=== PATIENT | female | born 1950 | race African-American/Black ===

== ENCOUNTER 2019-06-09 22:04 | Emergency (ER) | payer SELFPAY ==
[2019-06-09] MEDS ORDERED: methylPREDNISolone Sodium Succinate 125 MG/2 ML SDV ONE (22:06)
[2019-06-09] MEDS ORDERED: diphenhydrAMINE 50 MG/ML SDV ONE (22:06)
[2019-06-09] MEDS ORDERED: EPINEPHrine 1 MG/ML SDV ONE (22:07)
[2019-06-09] MEDS ORDERED: methylPREDNISolone Sodium Succinate 125 MG/2 ML SDV IVPUSH ONE (22:14)
[2019-06-09] MEDS ORDERED: EPINEPHrine 1 MG/ML SDV IM ONE (22:14)
[2019-06-09] MEDS ORDERED: diphenhydrAMINE 50 MG/ML SDV IVPUSH ONE (22:14)
[2019-06-09] MEDS ORDERED: Albuterol/Ipratropium 3.0-0.5 MG/3 ML Neb Soln ONE (22:26)
[2019-06-09] MEDS ORDERED: Ondansetron 4 MG/2 ML SDV ONE (22:26)
[2019-06-09] MEDS ORDERED: Albuterol/Ipratropium 3.0-0.5 MG/3 ML Neb Soln NEB ONE (22:33)
[2019-06-09] MEDS ORDERED: Ondansetron 4 MG/2 ML SDV IVPUSH ONE (22:33)
[2019-06-09 22:40] LABS: BLOOD UREA NITROGEN,BUN 13 mg/dL (7.0-18.0); CARBON DIOXIDE,CO2 28.2 mmol/L (21.0-32.0); CHLORIDE,CL 104 mmol/L (98-107); GLUCOSE RANDOM 192 mg/dL (74-106); SODIUM,NA 143 mmol/L (136-145)
[2019-06-09] MEDS ORDERED: Sodium Chloride 0.9% 1,000 ML IV SCH (22:45)
--- NOTE | 2019-06-09 23:27 | EDM.PDOC ---
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 Pt denies similar symptoms. Pt does take lisinopril for HTN. - Related Data Allergies Allergy/AdvReac Type Severity Reaction Status Date / Time No Known Allergies Allergy Verified 06/09/19 22:11 Home Meds: Home Meds Carvedilol [Coreg] 12.5 mg PO BID 06/09/19 [History] Gabapentin [Neurontin] 300 mg PO DAILY 06/09/19 [History] Simvastatin [Zocor] 10 mg PO BEDTIME 06/09/19 [History] metFORMIN [Glucophage] 500 mg PO BIDMEALS 06/09/19 [History] Past Medical History HEENT History: Reports: None Cardiovascular History: Reports: High Cholesterol, Hypertension Respiratory History: Reports: None Gastrointestinal History: Reports: None Genitourinary History: Reports: None 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 Musculoskeletal History: Reports: None Neurological History: Reports: None Psychiatric History: Reports: None Endocrine/Metabolic History: Reports: Diabetes, Type II 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 Hematologic History: Reports: None Immunologic History: Reports: None Oncologic (Cancer) History: Reports: None Dermatologic History: Reports: None - Infectious Disease History Infectious Disease History: Reports: None - Past Surgical History Head Surgeries/Procedures: Reports: None Social & Family History - Family History Family Medical History: Noncontributory - Tobacco Use Smoking Status *Q: Never Smoker - Caffeine Use Caffeine Use: Reports: None - Recreational Drug Use Recreational Drug Use: No ED ROS ALLERGIC REACTION - Review of Systems Review Of Systems: See Below Constitutional: Reports: Fatigue HEENT: Reports: Throat Swelling Respiratory: Reports: Shortness of Breath, Wheezing Cardiovascular: Reports: No Symptoms Endocrine: Reports: No Symptoms GI/Abdominal: Reports: Nausea Musculoskeletal: Reports: No Symptoms Skin: Reports: Other (facial swelling) Neurological: Reports: No Symptoms ED EXAM GENERAL NO PERIP PULSE - Physical Exam Exam: See Below Exam Limited By: No Limitations General Appearance: Alert, WD/WN, No Apparent Distress Eye Exam: Bilateral Eye: EOMI Throat/Mouth: Other (No tounge swelling. Right sided upper and lower lip edema and swelling) Neck: Normal Inspection Respiratory/Chest: No Respiratory Distress, No Accessory Muscle Use, Wheezing Cardiovascular: Regular Rate, Rhythm, No Murmur Course - Vital Signs Last Recorded V/S: Last Vital Signs Temp 96 F L 06/09/19 22:05 Pulse 102 H 06/09/19 22:50 Resp 19 06/09/19 22:50 BP 148/87 H 06/09/19 22:50 Pulse Ox 98 06/09/19 23:01 - Orders/Labs/Meds Orders: Active Orders 24 hr Category Date Time Status RT Aerosol Therapy [RC] ASDIRECTED Care 06/09/19 22:34 Active Chest 1V Frontal [CR] Stat Exams 06/09/19 22:48 Taken Sodium Chloride 0.9% [Normal Saline] 1,000 ml Med 06/09/19 22:45 Active IV ASDIRECTED Medication Orders Sodium Chloride (Normal Saline) 1,000 mls @ 999 mls/hr IV ASDIRECTED ALEC Last Admin: 06/09/19 22:44 Dose: 999 mls/hr Labs: Laboratory Tests 06/09/19 06/09/19 Range/Units 22:08 22:08 WBC 4.28 (4.0-11.0) K/uL RBC 4.82 (4.30-5.90) M/uL Hgb 12.3 (12.0-16.0) g/dL Hct 38.5 (36.0-46.0) % MCV 79.9 L (80.0-98.0) fL MCH 25.5 L (27.0-32.0) pg MCHC 31.9 (31.0-37.0) g/dL RDW Std Deviation 48.0 (28.0-62.0) fl RDW Coeff of Kathy 17 H (11.0-15.0) % Plt Count 369 (150-400) K/uL MPV 8.90 (7.40-12.00) fL Neut % (Auto) 38.5 L (48.0-80.0) % Lymph % (Auto) 54.0 H (16.0-40.0) % [place] % (Auto) 6.1 (0.0-15.0) % Eos % (Auto) 1.2 (0.0-7.0) % Baso % (Auto) 0.2 (0.0-1.5) % Neut # (Auto) 1.7 (1.4-5.7) K/uL Lymph # (Auto) 2.3 (0.6-2.4) K/uL [place] # (Auto) 0.3 (0.0-0.8) K/uL Eos # (Auto) 0.1 (0.0-0.7) K/uL Baso # (Auto) 0.0 (0.0-0.1) K/uL Nucleated RBC % 0.0 /100WBC Nucleated RBCs # 0 K/uL Sodium 143 (136-145) mmol/L Potassium 4.0 (3.5-5.1) mmol/L Chloride 104 (98-107) mmol/L Carbon Dioxide 28.2 (21.0-32.0) mmol/L BUN 13 (7.0-18.0) mg/dL Creatinine 0.8 (0.6-1.0) mg/dL Est Cr Clr Drug Dosing TNP Estimated GFR (MDRD) > 60.0 ml/min Glucose 192 H (74-106) mg/dL Calcium 9.3 (8.5-10.1) mg/dL Total Bilirubin 0.2 (0.2-1.0) mg/dL AST 33 (15-37) IU/L ALT 48 (14-63) IU/L Alkaline Phosphatase 69 (46-116) U/L Troponin I < 0.050 (0.000-0.056) ng/mL Total Protein 7.9 (6.4-8.2) g/dL Albumin 3.4 (3.4-5.0) g/dL Globulin 4.5 H (2.6-4.0) g/dL Albumin/Globulin Ratio 0.8 L (0.9-1.6) Meds: Medications Generic Name Dose Route Start Last Admin Trade Name Freq PRN Reason Stop Dose Admin Sodium Chloride 1,000 mls @ 999 mls/hr 06/09/19 22:45 06/09/19 22:44 Normal Saline IV 999 mls/hr ASDIRECTED ALEC Administration Discontinued Medications Generic Name Dose Route Start Last Admin Trade Name Freq PRN Reason Stop Dose Admin Albuterol/Ipratropium Confirm 06/09/19 22:26 06/09/19 22:36 Duoneb 3.0-0.5 Mg/3 Ml Administered 06/09/19 22:27 Not Given Dose 3 ml .ROUTE .STK-MED ONE Albuterol/Ipratropium 3 ml 06/09/19 22:33 06/09/19 22:36 Duoneb 3.0-0.5 Mg/3 Ml NEB 06/09/19 22:34 3 ml ONETIME ONE Administration Diphenhydramine HCl Confirm 06/09/19 22:06 06/09/19 22:15 Benadryl Administered 06/09/19 22:07 Not Given Dose 50 mg .ROUTE .STK-MED ONE Diphenhydramine HCl 25 mg 06/09/19 22:14 06/09/19 22:20 Benadryl IVPUSH 06/09/19 22:15 25 mg ONETIME ONE Administration Epinephrine HCl Confirm 06/09/19 22:07 06/09/19 22:15 Adrenalin Administered 06/09/19 22:08 Not Given Dose 1 mg .ROUTE .STK-MED ONE Epinephrine HCl 0.4 mg 06/09/19 22:14 06/09/19 22:20 Adrenalin IM 06/09/19 22:15 0.4 mg ONETIME ONE Administration Methylprednisolone Sodium Succinate Confirm 06/09/19 22:06 06/09/19 22:15 Solu-Medrol Administered 06/09/19 22:07 Not Given Dose 125 mg .ROUTE .STK-MED ONE Methylprednisolone Sodium Succinate 125 mg 06/09/19 22:14 06/09/19 22:20 Solu-Medrol IVPUSH 06/09/19 22:15 125 mg ONETIME ONE Administration Ondansetron HCl Confirm 06/09/19 22:26 06/09/19 22:36 Zofran Administered 06/09/19 22:27 Not Given Dose 4 mg .ROUTE .STK-MED ONE Ondansetron HCl 4 mg 06/09/19 22:33 06/09/19 22:35 Zofran IVPUSH 06/09/19 22:34 4 mg ONETIME ONE Administration - Re-Assessments/Exams Free Text/Narrative Re-Assessment/Exam: 06/09/19 23:27 Pt presents with signs and symptoms of anaphylaxis. Pt stabilized with Epi, Steroids, Benadryl and albuterol. Pt still not back to baseline, but o2 saturations are now stable and lip swelling has decreased. I Feel that the pt is high risk for requiring subsequent doses of IM epinephrine and admission for observation in an ICU setting. I feel like this would be safest done at a referral center. [facility] ED contacted and case discussed with Dr. Radford accepts the patient for transfer. Pt and daughter are in agreement with the plan. Departure - Departure Time of Disposition: 23:31 Disposition: DC/Tfer to [facility] 02 Condition: Good Clinical Impression: Anaphylactic reaction - Discharge Information *PRESCRIPTION DRUG MONITORING PROGRAM REVIEWED*: Not Applicable *COPY OF PRESCRIPTION DRUG MONITORING REPORT IN PATIENT JUDAH: Not Applicable Referrals: PCP,None [Primary Care Provider] - Sepsis Event Note - Evaluation Sepsis Screening Result: No Definite Risk - Focused Exam Vital Signs: Vital Signs Temp Pulse Resp BP Pulse Ox 06/09/19 23:01 98 06/09/19 22:50 102 H 19 148/87 H 93 L 06/09/19 22:35 105 H 19 163/89 H 98 06/09/19 22:05 96 F L 110 H 20 158/80 H 93 L Date Exam was Performed: 06/09/19 Time Exam was Performed: 23:22 - My Orders Last 24 Hours: My Active Orders 06/09/19 22:34 RT Aerosol Therapy [RC] ASDIRECTED 06/09/19 22:45 Sodium Chloride 0.9% [Normal Saline] 1,000 ml IV ASDIRECTED 06/09/19 22:48 Chest 1V Frontal [CR] Stat - Assessment/Plan Last 24 Hours: My Active Orders 06/09/19 22:34 RT Aerosol Therapy [RC] ASDIRECTED 06/09/19 22:45 Sodium Chloride 0.9% [Normal Saline] 1,000 ml IV ASDIRECTED 06/09/19 22:48 Chest 1V Frontal [CR] Stat
--- NOTE | 2019-06-11 11:23 | CR ---
EXAM DATE: 06/09/19 PATIENT'S AGE: 69 Patient: AROLDO MARTINEZ Facility: [facility] Site Site : [id number] Study: XRay-Chest -06/09/2019 11:20:40 PM Ordering Physician: Ian Pedersen Final Report: INDICATION: Allergic reaction to SEafood TECHNIQUE: Chest 1 view. COMPARISON: None. FINDINGS: Cardiovascular and mediastinum: Heart size and vasculature are normal in caliber and appearance. Mediastinum is within normal limits. Lungs and pleural space: Lungs are clear. No sign of infiltrate or mass. No sign of pleural effusion. No pneumothorax. Bones and soft tissues: No significant findings. IMPRESSION: Unremarkable chest. Dictated by: Chris Abreu MD @ 06/09/2019 23:24:47 Signed by: Chris Abreu MD @06/09/2019 11:24:47 PM (Electronic Signature) Report Signed by Proxy. [facility]ITALAddie
== END 2019-06-09 23:28 ==
LOC: MW.ED 22:04
DX: T78.03XA Anaphylactic reaction due to other fish, initial encounter (principal); E78.00 Pure hypercholesterolemia, unspecified; I10 Essential (primary) hypertension; E11.9 Type 2 diabetes mellitus without complications; Z79.899 Other long term (current) drug therapy; Z79.84 Long term (current) use of oral hypoglycemic drugs
CPT/HCPCS: 36415; 71045; 80053; 84484; 85025; 94640; 96361; 96372; 96374; 96375; 99285; J0171; J1200; J2405; J2930; J7030; 99284; J7620-GY